=== PATIENT | female | born 1945 ===

== ENCOUNTER 2025-01-16 10:55 | Outpatient (AMB) | payer OTHER, SELFPAY ==
--- NOTE | 2025-01-16 10:58 | A.OFFVIS_ITS ---
Intake Visit Reasons: 6M PN Allergies sulfamethoxazole (From Bactrim) Allergy (Unknown, Verified 01/16/25 10:59) Unknown trimethoprim (From Bactrim) Allergy (Unknown, Verified 01/16/25 10:59) Unknown Medication List - Last Reconciled 01/16/25 by Rajwinder Conde CNP gabapentin 300 mg PO BEDTIME 90 days levothyroxine 75 mcg PO DAILY lisinopril 5 mg PO DAILY lisinopril 10 mg PO DAILY metoprolol succinate ER 50 mg PO DAILY simvastatin 20 mg PO BEDTIME HPI Comments Details: 79-year-old woman with chronic axonal SM neuropathy resulting in discomfort affecting her sleep. She was doing okay. Balance was okay. No falls. She was taking gabapentin at bedtime. She still has some tingling and feeling of coldness in her feet, mostly at night which has not worsened. No significant pain. Sleep was still not so good. [facility] Medical History (Updated 01/16/25 @ 11:02 by Rajwinder Conde CNP) Hypertension Hypothyroidism Hyperlipidemia Review of Systems Const Denies chills, Denies daytime sleepiness, Reports difficulty sleeping, Denies fatigue, Denies fever(s), Denies frequent falls, Denies headache(s), Denies increased appetite, Denies poor appetite, Denies snoring, Denies weakness, Denies weight gain and Denies weight loss Eyes Denies loss of vision ENT Denies vertigo, Denies dizziness and Denies headache(s) Card Denies chest pain at rest, Denies chest pain with activity, Denies syncope, Denies leg edema and Denies palpitations Resp Denies snoring GI Denies constipation, Denies heartburn, Denies diarrhea and Denies nausea Denies urinary frequency, Denies urinary incontinence and Denies urinary urgency Musc Denies abnormal gait, Reports numbness and Reports tingling Skin/Breast Denies dry skin and Denies rash Neuro Denies abnormal gait, Denies vertigo, Denies dizziness, Denies syncope, Denies frequent falls, Denies headache(s), Denies lack of coordination, Denies loss of vision, Denies memory loss, Reports numbness, Denies restless legs, Denies seizure-like activity, Reports tingling, Denies paresthesias, Denies tremor(s) and Denies weakness Psych Denies anxiety, Denies depression, Denies auditory hallucinations, Denies memory loss, Denies visual hallucinations and Denies suicidal ideation Endo Denies fatigue and Denies palpitations Physical Exam Const Other: General Appearance:? normal, in no acute distress. Skin:? no rashes, no significant birthmarks. Heart:? S1, S2 normal, no murmurs. Lungs:? clear anteriorly and posteriorly. Extremities:? no edema. Psych:? alert, oriented, cognitive function intact, cooperative with exam. Neuro Other: Mental Status:?Normal attention, orientation, memory and affect.? Cranial Nerves:?Pupils are equal, round and reactive to light. External occular muscles are intact. Visual hess are full. Face is symmetrical. Facial sensations are normal. Tongue is midline. Palate elevates symmetrically. Shoulder shrugging is normal. Hearing to bedside conversation is normal. Motor Examination:?DTRs absent in LEs. Sensory Exam:?....? Coordination:?No ataxia,?no titubation.? Gait Exam: Within normal limits. Cerebellar Signs:?Nbfith-kt-afft is okay. Extrapyramidal System:?No tremor, rigidity with normal facial expressions.? Pronator Drift:?Not present.? Involuntary Movements:?No tremors seen.? Speech:?Normal.? Results Reviewed Results Reviewed: EMG/NCS LEs at [facility] in 2022: Mod SM axonal PN Assessment & Plan Assessment & Plan (1) Peripheral neuropathy: Code(s): G62.9 - Polyneuropathy, unspecified Category: Medical Qualifiers: Peripheral neuropathy type: polyneuropathy, unspecified Qualified Co de(s): G62.9 - Polyneuropathy, unspecified Plan: Continue gabapentin 300mg 1 capsule at bedtime. (2) Insomnia: Code(s): G47.00 - Insomnia, unspecified Category: Medical Qualifiers: Insomnia type: unspecified Qualified Code(s): G47.00 - Insomnia, unspecified Plan Meds tried: gabapentin, amitriptyline, trazodone Coding Level of Care Code Est Pt Level 4 (05453) Diagnoses Peripheral polyneuropathy G62.9 Peripheral neuropathy type: polyneuropathy, unspecified Insomnia, unspecified type G47.00 Insomnia type: unspecified
--- OUTSIDE RECORDS SUMMARY | 2025-01-16 12:18 | XMS_ITS | Clinical Summary ---
Author Organization [facility] [address] [place] [address] [address] [facility] [place] [address] Phone Care Team Providers Care Molded Frames Assembler Name Role Phone Garfield Roche MD Primary Care Provider [phone] Allergies Active Allergy Reactions Criticality Noted Date Comments Sulfamethoxazole-Trimethoprim 2014 Medications calcium carbonate/vitam in D3 (CALCIUM WITH VITAMIN D ORAL) Take by mouth 1 (one) time each day. Active CHOLECALCIFEROL , VITAMIN D3, ORAL Take by mouth. Active glucosamine/cho ndro english A/C/Mn (GLUCOSAMINE-CH ONDROITIN COMPLX ORAL) Take by mouth. Take 1 Tab by mouth 2 Times Daily Active multivitamin tablet Take 1 tablet by mouth 1 (one) time each day. Active gabapentin (NEURONTIN) 300 mg capsule Take 1 capsule (300 mg total) by mouth. Active metoprolol succinate (TOPROL-XL) 50 mg 24 hr tablet Take 1 tablet (50 mg total) by mouth. 07/22/2021 Active polyethylene glycol (MIRALAX) 17 gram packet Take 17 g by mouth. Active vitamin E acid succinate (vitamin E succinate) 268 mg (400 unit) tablet Take by mouth. Active acetaminophen (TYLENOL 8 HOUR) 650 mg 8 hr tablet Take 1 tablet (650 mg total) by mouth every 8 (eight) hours if needed for mild pain. Do not crush, chew, or split. Active simvastatin (ZOCOR) 20 mg tablet TAKE 1 TABLET BY MOUTH AT BEDTIME 90 tablet 1 10/09/2024 Active levothyroxine (SYNTHROID, LEVOTHROID) 75 mcg tablet TAKE 1 TABLET BY MOUTH DAILY 90 tablet 1 10/09/2024 Active lisinopriL (PRINIVIL,ZESTR IL) 5 mg tablet Take 1 tablet (5 mg total) by mouth 1 (one) time each day. 90 tablet 1 11/21/2024 Active lisinopriL (PRINIVIL,ZESTR IL) 10 mg tablet Take 1 tablet (10 mg total) by mouth 1 (one) time each day. 90 each 1 11/30/2024 Active Active Problems Problem Noted Date Diagnosed Date Diplopia 01/20/2024 Overview (01/20/2024): 12/14/16 Saw optometry, Dr. Treva Oneill left superior rectus muscle causing problem. Neuropathy 04/08/2023 Overview (01/20/2024): tibglking in feet, follows with DR. Paige, started with neurontin Dyslipidemia 11/29/2017 Assessment & Plan (03/08/2024 9:51 AM EST): Will follow her lipid panel. She continues on simvastatin. Will also monitor LFTs. Orders: Complete blood count; Future Comprehensive metabolic panel; Future Thyroid stimulating hormone; Future Lipid panel with reflex to direct LDL; Future Assessment & Plan (03/08/2024 9:48 AM EST): Orders: Complete blood count; Future Comprehensive metabolic panel; Future Thyroid stimulating hormone; Future Lipid panel with reflex to direct LDL; Future Insomnia 10/08/2016 Osteoporosis 10/04/2005 Overview (01/20/2024): Restarted in 2013 by her oncologist. Was on fosmaax for 5 years previously IMO update Assessment & Plan (03/08/2024 9:51 AM EST): Patient with osteoporosis. Last bone density 2 years ago. Will get new bone density. Will also assess vitamin D. Orders: Complete blood count; Future Comprehensive metabolic panel; Future Thyroid stimulating hormone; Future Lipid panel with reflex to direct LDL; Future Vitamin D 25 hydroxy; Future BD Bone Density DXA Axial Skeleton; Future Assessment & Plan (03/08/2024 9:48 AM EST): Orders: Complete blood count; Future Comprehensive metabolic panel; Future Thyroid stimulating hormone; Future Lipid panel with reflex to direct LDL; Future Vitamin D 25 hydroxy; Future BD Bone Density DXA Axial Skeleton; Future Hypothyroidism 10/04/2005 Assessment & Plan (03/08/2024 9:51 AM EST): Continue levothyroxine 75 mcg. Will recheck TSH. Orders: Complete blood count; Future Comprehensive metabolic panel; Future Thyroid stimulating hormone; Future Lipid panel with reflex to direct LDL; Future Assessment & Plan (03/08/2024 9:48 AM EST): Orders: Complete blood count; Future Comprehensive metabolic panel; Future Thyroid stimulating hormone; Future Lipid panel with reflex to direct LDL; Future Diverticulitis of colon without hemorrhage 10/04 Allergic rhinitis 10/04/2005 Uterine prolapse 10/04/2005 Encounters Date Type Department Care Team Description 11/24/2024 Telephone Adult Medicine [address] [phone] Garfield Roche MD 11/21/2024 1:00 PM EDT Office Visit Adult Medicine [address] [phone] Garfield Roche MD Hypothyroidism, unspecified type (Primary Dx); Dyslipidemia; Pre-diabetes; Primary hypertension from Last 3 Months Immunizations Immunization Administration Dates Next Due Influenza trivalent, 0.5mL ( Fluzone High-dose) 65yo and older 01/06/2023,12/04/2021,12/05/2020,12/14,01/28/2018,12/28/2016 Influenza trivalent, with pr eservative (Fluzone; Afluria) 6mo and older 01/17/2016,12/16/2014,01/05/2013,01/19,01/09/2011,01/01/2010,02/04/2008 ,01/21/2007 Influenza, Unspecified 12/14/2018 Pneumococcal conjugate 13 va lent (Prevnar 13, PCV13) 2mo and older 03/26/2015 Pneumococcal polysaccharide 23 valent (Pneumovax 23) 2yo and older 12/01/2010 RSV, bivalent, protein subun it RSVpreF, 0.5mL, Preservative Free (Arexvy) 60yo and older 01/08/2023 Td Tetanus diptheria (Tdvax) 7yo and older 12/01/2010 Tdap Tetanus diptheria acell ular pertussis (Boostrix; Adacel) 7yo and older 07/28/2023,03/21/2013 Zoster Live 04/29/2011 Zoster recombinant (Shingrix ) 19yo and older 07/04/2018,09/22/2017 Surgical History Surgery Date Site/Laterality Comments OTHER SURGICAL HISTORY 11/17/2004 PROCEDURE: MAMMOGRAM HYSTERECTOMY 04/19/2009 PROCEDURE: HISTORICAL TOTAL HYSTERECTOMY WITH BSO FOOT SURGERY PROCEDURE: HISTORICAL FOOT SURGERY; COMMENT: bunion BREAST BIOPSY 03/19/2010 Left PROCEDURE: BX BREAST; PERC NEEDLE CORE W/IMAG GUID BREAST LUMPECTOMY 03/19/2010 Left PROCEDURE: HISTORICAL BREAST LUMPECTOMY OTHER SURGICAL HISTORY PROCEDURE: HISTORICAL MELANOMA COLONOSCOPY 2018 PROCEDURE: HISTORICAL COLONOSCOPY; COMMENT: rpt 5 years Medical History Medical History Date Comments Unspecified hypothyroidism 10/04/2005 DX:Un specified hypothyroidism Diverticulosis of colon (wit hout mention of hemorrhage) 10/04/2005 DX:Diverticulosis of colon ( without mention of hemorrhage) Allergic rhinitis, cause unspecified 10/04/2005 DX:Allergic rhinitis, cause unspecified Osteoporosis, unspecified 10/04/2005 DX:Ost eoporosis, unspecified Other specified genital prolapse(618.89) 10/04/2005 DX:Other specified genital prolapse(618.89) Breast cancer (CMS/HCC V24, CMS/HCC V28) 07/04/2010 DX:Breast cancer (HCC) Skin cancer 07/04/2010 DX:Skin cancer; COMMENT: bcc History of other specified c onditions presenting hazards to health 2009 DX:History of other speci fied conditions presenting hazards to health; COMMENT: skin ca on nose basal cell Microscopic hematuria DX:Microsc opic hematuria; COMMENT: dr vanegas History of colonoscopy 12/2015 DX:Histor y of colonoscopy; COMMENT: 3 yrs for fu Serrated adenoma of colon 12/2015 DX:Ser rated adenoma of colon History of basal cell carcin cuba of skin 12/26/2014 DX:History of basal cell car cinoma of skin Diplopia DX:Diplopia Prediabetes DX:Prediabetes Family History Medical History Relation Name Comments Colon cancer Father Coronary artery disease Father Other: heart problems Mother osteop orosis Breast cancer Sister dx age 60 uterine ca Ovarian cancer Neg Hx Relation Name Status Comments Brother Alive Father Alive htn, colon canc er age 88 Mother Alive Sister dx age 60 Social History Tobacco Use Types Packs/Day Years Used Date Smoking Tobacco: Never Smokeless Tobacco: Never Tobacco Cessation:Counseling Given: Not Answered Alcohol Use Standard Drinks/Week Comments Yes 0.8 (1 standard drink = 0.6 oz p ure alcohol) Comments No Sex and Gender Information Value Date Recorded Sex Assigned at Not on file Legal Sex Female 8:56 PM EST Gender Identity Not on file Sexual Orientation Not on file Obstetrics History Para Term AB IAB SAB Ectopic Multiple Livin g Live Births 2 2 2 2 Date Outcome GA Total Labor Labor/2nd/3rd Weight Sex Type Anes PTL Lesly A1 A5 Name Clin Term Term Last Filed Vital Signs Vital Sign Reading Time Taken Comments Blood Pressure 140/70 11/21/2024 12:48 PM EDT Pulse 67 11/21/2024 12:48 PM EDT Temperature 36.7 C (98.1 F) 11/21/2024 12:48 PM EDT Respiratory Rate 14 11/21/2024 12:48 PM EDT Oxygen Saturation 98% 06/16/2024 4:11 PM EST Inhaled Oxygen Concentration - - Weight 64.9 kg (143 lb) 11/21/2024 12:48 PM EDT Height 160 cm (5' 3 ) 11/21/2024 12:48 PM EDT Body Mass Index 25.33 11/21/2024 12:48 PM EDT Plan of Treatment Upcoming Encounters Date Type Department Care Team (Late st Contact Info) Description 03/12/2025 11:15 AM EST Office Visit Adult Medicine [address] [phone] Garfield Rcohe MD [address] [place] [address] Health Maintenance Due Date Last Done Comments Colorectal Cancer Screening: Colonoscopy 1945 Falls Risk Assessment 03/28/2022 Social Influencers of Health Screening 03/28/2022 Depression Screening 04/19/2024 Influenza Vaccine (#1) 2024 , 01/06/2023, 12/04/2021, Additional history exists Hypertension/CHF/CAD Annual BMP Blood Test 11/14/2025 11/14/2024, 03/10/2024, 07/19/2023 Cholesterol Screening (Lipid Panel) 03/10/2029 03/10/2024, 07/10/2022 DTaP,Tdap,and Td Vaccines (4 - Td or Tdap) 07/27/2033 07/28/2023, 03/21/2013, 12/01/2010 Osteoporosis Screening (Bone Density Screening) 06/22/2034 06/22/2024, 11/11/2021, 01/19/2018 Hepatitis C Screening Completed 03/22/2013 Pneumococcal Vaccine: 50+ Years Completed 03/26/2015, 12/01/2010 Zoster Vaccines Completed 07/04/2018, 0609/2017, 04/29/2011 RSV Immunization Adult Patients Completed 01/08/2023 COVID-19 Vaccine Completed 06/23/2024, , 06/27/2023, Additional history exists HIB Vaccines Aged Out No longer eligi ble based on patient's age to complete this topic HPV Vaccines Aged Out No longer eligi ble based on patient's age to complete this topic Hepatitis A Vaccines Aged Out No long er eligible based on patient's age to complete this topic Hepatitis B Vaccines Aged Out No long er eligible based on patient's age to complete this topic IPV Vaccines Aged Out No longer eligi ble based on patient's age to complete this topic MMR Vaccines Aged Out No longer eligi ble based on patient's age to complete this topic Meningococcal ACWY Vaccine Aged Out N o longer eligible based on patient's age to complete this topic Meningococcal B Vaccine Aged Out No l onger eligible based on patient's age to complete this topic RSV Immunization Patients Under 20 months Aged Out No longer eligible based on patient's age to complete this topic Varicella Vaccines Aged Out No longer eligible based on patient's age to complete this topic Procedures Procedure Name Priority Date/Time Associated Diagnosis Comments BASIC METABOLIC PANEL Routine 11/14/2024 8:29 AM EDT Hyperglycemia HEMOGLOBIN A1C Routine 11/14/2024 8:29 AM EDT Hyperglycemia BD BONE DENSITY DXA AXIAL SKELETON Routine 06/22/2024 3:39 PM EST Osteoporosis, unspecified osteoporosis type, unspecified pathological fracture presence LIPID PANEL WITH REFLEX TO DIRECT LDL Routine 03/10/2024 9:19 AM EST Hypothyroidism, unspecified type Dyslipidemia Osteoporosis, unspecified osteoporosis type, unspecified pathological fracture presence HEPATITIS C SCREENING Routine 03/22/2013 from Last 3 Months or Most Recently Relevant to Health Maintenance Results * Hemoglobin A1c (11/14/2024 8:29 AM EDT) Pathologist [facility] Hemoglobin A1C 6.0 <6.5 % LAB CHEMISTRY METHOD 11/14/2024 11:27 AM EDT [facility] Mean Bld Glu Estim. 126 mg/dL LAB CHEMISTRY METHOD 11/14/2024 11:27 AM EDT [facility] Blood Venous blood specimen / Unknown Venipuncture / Unknown 11/14/2024 8:29 AM EDT 11/14/2024 8:29 AM EDT Garfield Roche MD LAB BLOOD ORDERABLES Final Resul t [facility] [address] [place] [address], * (ABNORMAL) Basic metabolic panel (11/14/2024 8:29 AM EDT) Pathologist [facility] Sodium 140 133 - 145 mmol/L LAB CHEMISTRY METHOD 11/14/2024 11:17 AM EDT [facility] Potassium 4.1 3.5 - 5.5 mmol/L LAB CHEMISTRY METHOD 11/14/2024 11:17 AM [facility] Chloride 109 96 - 110 mmol/L LAB CHEMISTRY METHOD 11/14/2024 11:17 AM [facility] CO2 29 21 - 32 mmol/L LAB CHEMISTRY METHOD 11/14/2024 11:17 AM [facility] Anion Gap 2(L) 3 - 11 LAB CHEMISTRY METHOD 11/14/2024 11:17 AM [facility] Glucose 106(H) 70 - 100 mg/dL LAB CHEMISTRY METHOD 11/14/2024 11:17 AM [facility] BUN 15 5 - 25 mg/dL LAB CHEMISTRY METHOD 11/14/2024 11:17 AM [facility] Creatinine 0.81 0.50 - 1.10 mg/dL LAB CHEMISTRY METHOD 11/14/2024 11:17 AM [facility] eGFR 74 >=60 mL/min/1. 73m2 LAB CHEMISTRY METHOD 11/14/2024 11:17 AM [facility] Comment:Calculation based on the Chronic Kidney Disease Epidemiology Collaboration (CKD-EPI) equation refit without adjustment for race. BUN/Creatinine Ratio 18.5 LAB CHEMISTRY METHOD 11/14/2024 11:17 AM [facility] Calcium 9.8 8.5 - 10.5 mg/dL LAB CHEMISTRY METHOD 11/14/2024 11:17 AM [facility] Blood Venous blood specimen / Unknown Venipuncture / Unknown 11/14/2024 8:29 AM EDT 11/14/2024 8:29 AM EDT us Garfield Roche MD LAB BLOOD ORDERABLES Final Resul t [facility] [address] [place] [address], * BD Bone Density DXA Axial Skeleton (06/22/2024 3:39 PM EST) Anatomical Region Laterality Modality Wrist, Hip, L-spine Bone Densito metry 06/23/2024 4:49 PM EST Impressions 06/23/2024 4:52 PM EST Osteopenia. The NOF guidelines recommend that FDA approved medical therapies be considered in postmenopausal women and men age >50 years with a: i. Hip or vertebral (clinical or morphometric) fracture ii. T score of < -2.5 at the spine or hip iii. 10 year fracture probability by FRAX of >3% for hip fracture, or >20% for major osteoporotic fracture PLEASE NOTE: W.H.O. classification is based on lowest measured density at the spine, femoral neck, or total hip.This classification has prognostic significance when applied to post menopausal women and older men. 1) The World Health Organization defines low BMD as follows: T-score Normal at or > -1 Osteopenia < -1 and > -2.5 Osteoporosis at or < -2.5 without fractures Established osteoporosis < -2.5 with fractures -------- FINAL REPORT -------- Dictated By: Jane Woodruff Dictated Date: 06/23/2024 16:49 ET Assigned Physician: Jane Woodruff Reviewed and Electronically Signed By: Jane Woodruff Signed Date: 06/23/2024 16:52 ET Workstation ID: [id number] Transcribed By: Self Edit Transcribed Date: 06/23/2024 16:49 ET Narrative 06/23/2024 4:52 PM EST Clinical history: osteoporosis Scans of the lumbar spine and hips were performed on a [employer] fan beam bone densitometer. Bone mineral density measurements and associated T and Z scores respectively are as follows: Lumbar Spine, levoscoliosis of the lumbar spine: L1-L4 BMD: 0.905 g/cm2 T-Score: -1.3 Z-Score: 1.3 Left Proximal Femur: Neck BMD: 0.648 g/cm2 T-Score: -1.8 Z-Score: 0.4 Total BMD: 0.819 g/cm2 T-Score: -1.0 Z-Score: 1.0 Wrist: 1/3 BMD: 0.610 g/cm2 T-Score: -1.4 Z-Score: 1.6 Compared with the prior study the mean BMD reading in the total left hip has increased which is statistically significant Compared with standards for the young adult, lowest measured bone density places the patient in the W.H.O. osteopenic range. Procedure Note Jane Woodruff MD - 06/23/2024 Clinical history: osteoporosis Scans of the lumbar spine and hips were performed on a [employer] beam bone densitometer. Bone mineral density measurements and associated T and Z scoresrespectively are as follows: Lumbar Spine, levoscoliosis of the lumbar spine: L1-L4 BMD: 0.905 g/cm2 T-Score: -1.3 Z-Score: 1.3 Left Proximal Femur: Neck BMD: 0.648 g/cm2 T-Score: -1.8 Z-Score: 0.4 Total BMD: 0.819 g/cm2 T-Score: -1.0 Z-Score: 1.0 Wrist: 1/3 BMD: 0.610 g/cm2 T-Score: -1.4 Z-Score: 1.6 Compared with the prior study the mean BMD reading in the total left hiphas increased which is statistically significant Compared with standards for the young adult, lowest measured bone densityplaces the patient in the W.H.O. osteopenic range. IMPRESSION: Osteopenia. The NOF guidelines recommend that FDA approved medical therapies beconsidered in postmenopausal women and men age >50 years with a: i. Hip or vertebral (clinical or morphometric) fracture ii. T score of < -2.5 at the spine or hip iii. 10 year fracture probability by FRAX of >3% for hip fracture, or >20%for major osteoporotic fracture PLEASE NOTE: W.H.O. classification is based on lowest measured density at the spine,femoral neck, or total hip.This classification has prognostic significancewhen applied to post menopausal women and older men. 1) The World Health Organization defines low BMD as follows: T-score Normal at or > -1 Osteopenia < -1 and > -2.5 Osteoporosis at or < -2.5 withoutfractures Established osteoporosis < -2.5 with fractures -------- FINAL REPORT -------- Dictated By: Jane Woodruff Dictated Date: 06/23/2024 16:49 ET Assigned Physician: Jane Woodruff Reviewed and Electronically Signed By: Jane Woodruff Signed Date: 06/23/2024 16:52 ET Workstation ID: [id number] Transcribed By: Self Edit Transcribed Date: 06/23/2024 16:49 ET Alex HERRERA IM DXA PROCEDURES Final Result * Lipid panel with reflex to direct LDL (03/10/2024 9:19 AM EST) Cholesterol 146 0 - 200 mg/dL LAB CHEMISTRY METHOD 03/10/2024 1:51 PM EST [facility] Triglycerides 108 0 - 150 mg/dL LAB CHEMISTRY METHOD 03/10/2024 1:51 PM EST [facility] HDL 53 >=40 mg/dL LAB CHEMISTRY METHOD 03/10/2024 1:51 PM EST [facility] LDL Calculated 71 0 - 100 mg/dL LAB CHEMISTRY METHOD 03/10/2024 1:51 PM EST [facility] VLDL Cholesterol Anthony 21.6 mg/dL LAB CHEMISTRY METHOD 03/10/2024 1:51 PM EST [facility] Non HDL Chol. (LDL+VLDL) 93 <145 mg/dL LAB CHEMISTRY METHOD 03/10/2024 1:51 PM EST [facility] Chol/HDL Ratio 2.8 0.0 - 4.4 LAB CHEMISTRY METHOD 03/10/2024 1:51 PM EST [facility] Blood Venous blood specimen / Unknown Venipuncture / Unknown 03/10/2024 9:19 AM EST 03/10/2024 9:19 AM EST Alex HERRERA LAB BLOOD ORDERABLES Fin al Result [facility] [address] [place] [address], * Hepatitis C Screening (03/22/2013) Hepatitis C Screening abstracted us Historical Provider HEALTH MAINTENANCE Final Result from Last 3 Months or Most Recently Relevant to Health Maintenance Insurance [facility] Care Teams Molded Frames Assembler Relationship Specialty Start Date End Date Garfield Roche MD [address] [place] [id number] PCP - General Internal Medicine 10/07/20
--- OUTSIDE RECORDS SUMMARY | 2025-01-16 12:18 | XMS_ITS ---
Author Name [facility] Organization Unknown Care Team Organization Name Specialty Phone Email Start Date End Da te [facility] Primary [facility] 02/24/2022 12/06/2023
== END 2025-01-16 11:17 | disposition home or self-care (01) ==
PROVIDERS: PCP Internal Medicine; Referring Provider Internal Medicine; Visit Provider Registered Nurse
DX: G62.9 Polyneuropathy, unspecified (principal); G47.00 Insomnia, unspecified
CPT/HCPCS: 99214